=== PATIENT | female | born 1945 | race Caucasian/White ===

== ENCOUNTER 2017-05-07 13:26 | Outpatient (CLI) | payer OTHER ==
[2013-01-09 20:21] VITALS: BMI 33.5
== END 2017-05-07 13:27 | disposition home or self-care (01) ==
LOC: LAB 13:26
PROVIDERS: ATTEND General Practice
DX: M85.80 Other specified disorders of bone density and structure, unspecified site (principal)
CPT/HCPCS: 36415; 82306

== ENCOUNTER 2017-06-04 16:05 | Outpatient (CLI) ==
[2013-01-09 20:21] VITALS: BMI 33.5
--- NOTE | 2017-06-04 17:12 | US ---
EXAM: Ultrasound venous Doppler right and left lower extermity HISTORY: Pain in left leg COMPARISON: None TECHNIQUE: Venous duplex ultrasound of the right and left lower extremity was performed using color, amaral-scale, and Doppler flow imaging. FINDINGS: There is normal color flow and compression of the right and left common femoral, greater s aphenous, profunda femoral, femoral, popliteal, peroneal, posterior tibial, and anterior tibial veins without evidence of intraluminal thrombus. There is a anechoic cyst in the left popliteal fossa autumn uring 1.6 x 2.0 x 6.6 cm, consistent with Douglass's cyst. IMPRESSION: 1. No right or left lower extremity deep venous thrombosis. 2. Left Douglass's cyst.
== END 2017-06-04 16:06 | disposition home or self-care (01) ==
LOC: RAD 16:05
PROVIDERS: ATTEND General Practice
DX: M79.605 Pain in left leg (principal)